=== PATIENT | female | born 1990 | race Caucasian/White ===

== ENCOUNTER → 2017-03-01 | Outpatient (CLI) | payer OTHER | END | disposition home or self-care (01) | LOC: CFH 07:50 | PROVIDERS: ATTEND Internal Medicine Cardiovascular Disease | DX: Z34.93 Encounter for supervision of normal pregnancy, unspecified, third trimester (principal); I37.1 Nonrheumatic pulmonary valve insufficiency; R00.0 Tachycardia, unspecified; R55 Syncope and collapse; Z3A.38 38 weeks gestation of pregnancy | CPT/HCPCS: 93306 ==